=== PATIENT | male | born 2000 | race Two or more races ===

== ENCOUNTER → 2021-12-15 15:05 | Outpatient (BNVA) | payer OTHER, SELFPAY | PROVIDERS: Visit Provider Psychiatry & Neurology Neurology | DX: G90.2 Horner's syndrome (principal); G47.21 Circadian rhythm sleep disorder, delayed sleep phase type; R06.83 Snoring; G47.10 Hypersomnia, unspecified | CPT/HCPCS: 99202 ==

== ENCOUNTER → 2022-01-02 13:02 | Outpatient (REF) | payer OTHER, SELFPAY | LOC: HO.SL 13:02 | PROVIDERS: Visit Provider Psychiatry & Neurology Neurology | DX: G47.10 Hypersomnia, unspecified (principal); R06.83 Snoring | CPT/HCPCS: 95806 ==